=== PATIENT | female | born 1960 ===

== ENCOUNTER 2019-02-04 12:05 | Emergency (ER) | payer MEDICAID ==
[2019-02-04 12:10] VITALS: PULSE 71; RESP 18
[2019-02-04] MEDS ORDERED: Lidocaine 5% Patch TD STA (12:31)
[2019-02-04] MEDS ORDERED: Lidocaine 5% Patch TD ONE (12:37)
--- NOTE | 2019-02-04 12:40 | ED PDOC ---
HPI: Back Time Seen by Provider: 02/04/19 12:16 Chief Complaint (Nursing): Back Pain Chief Complaint (Provider): Back Pain History Per: Patient History/Exam Limitations: no limitations Onset/Duration Of Symptoms: Days Current Symptoms Are (Timing): Still Present Additional Complaint(s): 58 y/o female with a PMHx of DM presents to the ED for evaluation of right sided back pain, onset two weeks ago. Patient reports pain began after having cleaned a house when the vacuum she was using stopped working. Patient notes she used a Swiffer mop instead. Patient states the mop handle then broke forcing her to use a shorter mop. Patient reports pain worsens with movement and walking. Patient notes of seeing her PMD for this complaint a few days ago and was advised to use Bengay and hot heating pads as well as instructed to go to the Emergency Room if pain did not improve. Patient states pain has not improved thus prompting today's visit. Otherwise (-) use of oral medications, (-) radiation in pain, (-) numbness, (-) tingling, (-) urinary or bowel incontinence, (-) heavy lifting, (- ) history of malignancy and drug use PMD: Chey Lu Past Medical History Reviewed: Historical Data, Nursing Documentation, Vital Signs Vital Signs: Last Vital Signs Temp 97.2 F L 02/04/19 12:10 Pulse 71 02/04/19 12:10 Resp 18 02/04/19 12:10 BP 118/74 02/04/19 12:10 Pulse Ox 98 02/04/19 12:12 Primary Care Provider: FAMILY PROVIDER,NO - Medical History PMH: Diabetes, HTN - Surgical History Surgical History: No Surg Hx - Family History Family History: States: Unknown Family Hx - Home Medications Home Medications: Ambulatory Orders Medication Instructions Recorded Enalapril Maleate [Vasotec] 2.5 mg PO DAILY 07/03/17 Ibuprofen [Motrin] 600 mg PO TID #21 tab 07/03/17 metFORMIN [glucOPHAGE] 500 mg PO DAILY 07/03/17 Cyclobenzaprine [Cyclobenzaprine 10 mg PO TID PRN #12 tab 02/04/19 HCl] Ibuprofen [Motrin Tab] 600 mg PO Q6 PRN #20 tab 02/04/19 Lidocaine 5% [Lidoderm] 1 patch TOP DAILY #10 patch 02/04/19 - Allergies Allergies/Adverse Reactions: Allergies Allergy/AdvReac Type Severity Reaction Status Date / Time No Known Allergies Allergy Verified 02/04/19 12:12 Review of Systems ROS Statement: Except As Marked, All Systems Reviewed And Found Negative Musculoskeletal: Positive for: Back Pain Physical Exam - Reviewed Nursing Documentation Reviewed: Yes Vital Signs Reviewed: Yes - Physical Exam Comments: GENERAL APPEARANCE: Patient is awake, alert, oriented x 3, in mild obvious discomfort. SKIN: Warm, dry; (-) cyanosis. EYES: (-) conjunctival pallor. ENMT: Mucous membranes moist. NECK: (-) tenderness, (-) stiffness, (-) lymphadenopathy. CHEST AND RESPIRATORY: (-) rales, (-) rhonchi, (-) wheezes; breath sounds equal bilaterally. HEART AND CARDIOVASCULAR: (-) irregularity; (-) murmur, (-) gallop. ABDOMEN AND GI: Soft; (-) tenderness; (-) palpable mass. BACK: (+) right sided paralumbar tenderness, (+) palpable muscle spasm, (-) direct bony tenderness, (-) deformity. Straight leg raising (-) bilaterally. Full ROM EXTREMITIES: (-) deformity. Distal pulses good bilaterally. NEURO AND PSYCH: Mental status as above. Intact sensation bilaterally; normal strength in extension of the knees, plantar and dorsiflexion of the toes. DTRs symmetric. Strength 5/5 in all extremities (x4). (+) slow and steady gait - ECG O2 Sat by Pulse Oximetry: 98 (RA) Pulse Ox Interpretation: Normal Medical Decision Making Medical Decision Making: Time: 1231 Impression: Back Pain Plan: -- Lumbar Spine Complete XR -- Flexeril 10 mg PO -- Lidoderm 1 ea TD -- Motrin 600 mg PO -- Patient reports she does have a ride home. 13:40 Xr reviewed by me - no acute fracture or dislocations, +DJD 13:50 on re eval pt reports feeling better, walking and moving with less pain, pt is neurologically intact, steady gait, stable for dc Discussed results, diagnosis, treatment, return precautions and f/u with pt who is understanding, in agreement and stable for dc Scribe Attestation: Documented by Annie Self, acting as a scribe forAlexis Arely Roga, PA-C. Provider Scribe Attestation: All medical record entries made by the Scribe were at my direction and personally dictated by me. I have reviewed the chart and agree that the record accurately reflects my personal performance of the history, physical exam, medical decision making, and the department course for this patient. I have also personally directed, reviewed, and agree with the discharge instructions and disposition. Disposition - Clinical Impression Clinical Impression: Strain of muscle, fascia and tendon of lower back, initial encounter, Muscle spasm of back - Patient ED Disposition Is Patient to be Admitted: No Counseled Patient/Family Regarding: Studies Performed, Diagnosis, Need For Followup, Rx Given - Disposition Referrals: Chey Lu MD [Family Provider] - Hermelinda Coates MD [Staff Provider] - Disposition: Routine/Home Disposition Time: 13:52 Condition: IMPROVED Additional Instructions: Thank you for letting us take care of you today. The emergency medical care you received today was directed at your acute symptoms. If you were prescribed any medication, please fill it and take as directed. Do not drive or drink alcohol when taking flexeril. Rest, avoid heavy lifting or strenuous activity for one week. Use heating pads and hot showers to soothe muscles. It may take several days for your symptoms to resolve. Return to the Emergency Department if your symptoms worsen, do not improve, or if you have any other problems. Please contact your doctor in 2 days for re-evaluation and follow up / or call one of the physicians/clinics you have been referred to that are listed on the Patient Visit Information form that is included in your discharge packet. Bring any paperwork you were given at discharge with you along with any medications you are taking to your follow up visit. Our treatment cannot replace ongoing medical care by a primary care provider (PCP) outside of the emergency department. Leslie por dejarnos cuidar de ti hoy. La atencin mdica de emergencia que recibi hoy se dirigi a massimo sntomas agudos. Si le recetaron algn medicamento, llnelo y tmelo segn las indicaciones. No conduzca ni fabiola alcohol cuando est tomando flexeril. Descanse, evite levantar objetos pesados ??o realizar actividades extenuantes kathy raul semana. Use almohadillas trmicas y duchas de andreafski para aliviar los msculos. Los sntomas pueden tardar varios wang en resolverse. Regrese al Departamento de Emergencias si massimo sntomas empeoran, no mejoran o si tiene otros problemas. Comunquese con toussaint mdico dentro de 2 wang para raul nueva evaluacin y jaye un seguimiento o llame a tan de los mdicos / clnicas a los que michelle sido referido y que figuran en el formulario de Informacin de visita al paciente que se incluye en toussaint paquete de mansi. Lleve todos los documentos que recibi al momento del mansi junto con los medicamentos que est tomando para toussaint visita de seguimiento. Nuestro tratamiento no puede reemplazar la atencin mdica continua por parte de un proveedor de atencin primaria (PCP) fuera del departamento de emergencias. Prescriptions: Cyclobenzaprine [Cyclobenzaprine HCl] 10 mg PO TID PRN #12 tab PRN Reason: muscle relaxation Ibuprofen [Motrin Tab] 600 mg PO Q6 PRN #20 tab PRN Reason: Pain, Moderate (4-7) Lidocaine 5% [Lidoderm] 1 patch TOP DAILY #10 patch Forms: [facility] (Sinhala) Print Language: TAJIK - POA Present On Arrival: None
[2019-02-04 13:58] VITALS: BP 122/78; TEMP 98; O2SAT 99
--- NOTE | 2019-02-04 14:04 | RAD ---
Date of service: 02/04/2019 PROCEDURE: Radiographs of the Lumbar Spine. HISTORY: pain low back, right side No history of trauma provided. COMPARISON: No prior. TECHNIQUE: 5 views obtained. FINDINGS: BONES: Normal alignment. No listhesis. No fracture. DISC SPACES: Unremarkable. OTHER FINDINGS: None. IMPRESSION: Unremarkable radiographs of the lumbar spine.
== END 2019-02-04 13:57 | disposition home or self-care (01) ==
LOC: H.ER 12:05
DX: M54.9 Dorsalgia, unspecified (principal)